=== PATIENT | male | born 1955 | race Caucasian/White ===

== ENCOUNTER 2016-03-30 16:17 | Emergency (ER) | payer SELFPAY ==
[2016-03-30] MEDS ORDERED: CLINDAMYCIN HCL 150 MG CAPSULE ONE (17:12)
== END 2016-03-30 17:30 | disposition home or self-care (01) ==
LOC: ED 16:17
PROC: 0J990ZZ Drainage of Buttock Subcutaneous Tissue and Fascia, Open Approach (ICD-10-PCS; principal; 2016-03-30)
DX: L02.31 Cutaneous abscess of buttock (principal); F17.210 Nicotine dependence, cigarettes, uncomplicated
CPT/HCPCS: 10061 ×3; 99283 ×2; A9270